=== PATIENT | male | born 1995 | race Two or more races ===

== ENCOUNTER 2025-06-24 19:25 | Emergency (ER) | payer OTHER ==
[~2025-06-24] VITALS: Ht 177.8 cm; Wt 9.6 kg
[~2025-06-24 19:25] MED LIST: AMLO2.5T96 PO; DIVA-111 PO; OLAN5TAB52 PO
[2025-06-24 22:51] LABS: PLATELET COUNT (AUTO) 389 K/uL (150-450); RED BLOOD CELL COUNT(AUTO) 5.62 MIL/uL (4.50-5.90); RED CELL DISTRIBUTION WIDTH 13.5 % (11.5-14.5); WHITE BLOOD COUNT (AUTO) 16.0 K/uL (4.5-11.0)
[2025-06-24 22:57] LABS: CALCIUM, TOTAL 8.7 mg/dL (8.8-10.5); CREATININE 0.81 mg/dL (0.60-1.30); GLOMERULAR FILTR. RATE CALC > 60 mL/min (>60); GLUCOSE,RANDOM 108 mg/dL (70-110); SODIUM SERUM 140 mmol/L (136-145); UREA NITROGEN, BLOOD 7 mg/dL (7-18)
[2025-06-24 23:06] LABS: COVID AG,FIA SOURCE NASAL SWAB
[2025-06-24 23:35] LABS: APPEARANCE,URINE CLEAR (CLEAR); GLUCOSE, URINE (UA) NEGATIVE (NEGATIVE); LEUKOCYTE ESTERASE ,URINE NEGATIVE (NEGATIVE); NITRATE,URINE NEGATIVE (NEGATIVE); OCCULT BLOOD,URINE NEGATIVE (NEGATIVE); PH,URINE DRUG SCREEN 6.0 (5.0-8.0); SPECIFIC GRAVITIY, URINE 1.006 (1.003-1.030)
[2025-06-24 23:40] LABS: SARS-COV2 (COVID) ANTIGEN,FIA Negative (Negative)
[2025-06-24 23:43] LABS: ALCOHOL, URINE DRUG SCREEN NEGATIVE (NEGATIVE); AMPHET/METH SCREEN,URINE NEGATIVE (NEGATIVE); BARBITURATE SCREEN, URINE NEGATIVE (NEGATIVE); CANNABINOID SCREEN,URINE POSITIVE (NEGATIVE); COCAINE SCREEN,URINE NEGATIVE (NEGATIVE); METHADONE SCREEN, URINE NEGATIVE (NEGATIVE)
[2025-06-25 06:15] VITALS: TEMP 97.3
[2025-06-25 10:41] VITALS: BP 125/74; PULSE 80; RESP 16; O2SAT 97
== END 2025-06-25 10:43 | disposition home or self-care (01) ==
LOC: EMS 19:25 → MERGE 19:25 → EMS 06-25 10:43
DX: F20.9 Schizophrenia, unspecified (principal); F10.129 Alcohol abuse with intoxication, unspecified; F12.90 Cannabis use, unspecified, uncomplicated; Z20.822 Contact with and (suspected) exposure to COVID-19; Y90.9 Presence of alcohol in blood, level not specified
CPT/HCPCS: 99285; 87426; 80048; 81003; 85025; 36415; 80307; G0480